=== PATIENT | male | born 1980 | race Caucasian/White ===

== ENCOUNTER 2019-11-16 09:27 | Outpatient (REF) | payer OTHER, SELFPAY ==
[2019-11-16 11:51] LABS: Cholesterol 218 mg/dL; HDL Cholesterol 51 mg/dL; LDL Cholesterol Calculated 158 mg/dl; Triglycerides 47 mg/dL
== END 2019-11-16 09:28 | disposition home or self-care (01) ==
LOC: HO.HMGCLDS 09:27
PROVIDERS: PCP Internal Medicine; Visit Provider Internal Medicine
DX: E78.00 Pure hypercholesterolemia, unspecified (principal)
CPT/HCPCS: 80061

== ENCOUNTER 2020-07-29 10:39 | Outpatient (REF) | payer OTHER, SELFPAY ==
[2020-07-29 14:22] LABS: Cholesterol 176 mg/dL; HDL Cholesterol 54 mg/dL; LDL Cholesterol Calculated 115 mg/dl; Triglycerides 35 mg/dL
[2020-07-30 22:12] LABS: Transglutaminase Ab IgG 1 U/mL
== END 2020-07-29 10:40 | disposition home or self-care (01) ==
LOC: HO.HMGCLDS 10:39
PROVIDERS: PCP Internal Medicine; Visit Provider Internal Medicine
DX: E78.00 Pure hypercholesterolemia, unspecified (principal); R14.0 Abdominal distension (gaseous)
CPT/HCPCS: 36415; 80061; 83516

== ENCOUNTER 2021-07-25 10:56 | Outpatient (REF) | payer OTHER, SELFPAY ==
[2021-07-25 15:23] LABS: MANUAL DIFF FLAG NO
[2021-07-25 15:28] LABS: Basophils Percent Auto 0.2 % (0-2); Eosinophils Percent Auto 0.9 % (0-4); Hematocrit 44.2 % (42.0-52.0); Imm Gran Abs Auto 0.01 X10*3/uL (0.00-0.03); Imm Gran Pct Auto 0.2 % (0.0-0.4); Lymphocytes Absolute Auto 1.3 X10*3/uL (1.2-4.9); Lymphocytes Percent Auto 27.8 % (20-40); Mean Corpuscular HGB Conc 33.9 g/dl (31.0-36.0); Mean Corpuscular Hemoglobin 29.8 pg (27.0-33.0); Mean Corpuscular Volume 87.7 fL (80.0-98.0); Mean Platelet Volume 10.1 fL (9.4-12.4); Monocytes Absolute Auto 0.5 X10*3/uL (0.1-1.2); Monocytes Percent Auto 10.8 % (2-11); Neutrophils Absolute Auto 2.7 x10*3/uL (2.0-8.3); Neutrophils Percent Auto 60.1 % (45-73); Platelet Count 169 X10*3/uL (160-400); Red Blood Count 5.04 X10*6/uL (4.60-5.80); Red Cell Distribution Width 13.3 % (11.0-16.0); White Blood Count 4.5 X10*3/uL (4.8-10.8)
[2021-07-25 15:46] LABS: Alanine Aminotransferase 27 U/L (0-40); Albumin Level 4.4 g/dL (3.5-5.0); Alkaline Phosphatase 28 U/L (39-117); Anion Gap 13 (12-20); Aspartate Amino Transferase 30 U/L (5-37); Blood Urea Nitrogen 12 mg/dL (9-16); Calcium 9.1 mg/dL (8.4-10.2); Carbon Dioxide 26 mmol/L (22-29); Chloride 107 mmol/L (96-108); Cholesterol 183 mg/dL; Estimated Glomerular Filt Rate > 60; Glucose Fasting 76 mg/dL (60-99); HDL Cholesterol 52 mg/dL; LDL Cholesterol Calculated 122 mg/dl; Sodium 142 mmol/L (135-145); Total Protein 6.8 g/dL (6.5-8.0); Triglycerides 45 mg/dL
[2021-07-25 16:04] LABS: Syphilis Screen Nonreactive (Nonreactive)
[2021-07-26 10:21] LABS: CT PCR NOT DETECTED (Not Detect.); NG PCR NOT DETECTED (Not Detect.)
[2021-07-28 04:10] LABS: HIV AB/AG Nonreactive (Nonreactive); HIV Num 1 0.09 S/CO (0.00-0.99)
== END 2021-07-25 10:57 | disposition home or self-care (01) ==
LOC: HO.HMGCLDS 10:56
PROVIDERS: Visit Provider Internal Medicine
DX: Z00.00 Encounter for general adult medical examination without abnormal findings (principal); Z11.3 Encounter for screening for infections with a predominantly sexual mode of transmission; Z11.4 Encounter for screening for human immunodeficiency virus [HIV]
CPT/HCPCS: 80053; 80061; 85025; 86780; 87389; 87491; 87591

== ENCOUNTER 2022-07-24 12:40 | Outpatient (REF) | payer OTHER, SELFPAY ==
[2022-07-24 13:28] LABS: MANUAL DIFF FLAG NO
[2022-07-24 13:32] LABS: Basophils Percent Auto 0.5 % (0-2); Eosinophils Absolute Auto 0.1 X10*3/uL (0.0-0.4); Eosinophils Percent Auto 1.7 % (0-4); Hematocrit 45.3 % (42.0-52.0); Hemoglobin 15.9 g/dl (14.0-18.0); Imm Gran Abs Auto 0.01 X10*3/uL (0.00-0.03); Imm Gran Pct Auto 0.2 % (0.0-0.4); Lymphocytes Absolute Auto 1.7 X10*3/uL (1.2-4.9); Lymphocytes Percent Auto 28.3 % (20-40); Mean Corpuscular HGB Conc 35.1 g/dl (31.0-36.0); Mean Corpuscular Hemoglobin 30.1 pg (27.0-33.0); Mean Corpuscular Volume 85.8 fL (80.0-98.0); Monocytes Absolute Auto 0.7 X10*3/uL (0.1-1.2); Monocytes Percent Auto 11.3 % (2-11); Neutrophils Absolute Auto 3.5 x10*3/uL (2.0-8.3); Platelet Count 190 X10*3/uL (160-400); Red Blood Count 5.28 X10*6/uL (4.60-5.80); Red Cell Distribution Width 13.1 % (11.0-16.0)
[2022-07-24 18:56] LABS: Alanine Aminotransferase 24 U/L (0-40); Albumin Level 4.2 g/dL (3.5-5.0); Alkaline Phosphatase 30 U/L (39-117); Anion Gap 13 (12-20); Aspartate Amino Transferase 27 U/L (5-37); Bilirubin Total 1.2 mg/dL (0.0-1.0); Blood Urea Nitrogen 13 mg/dL (9-16); Calcium 9.9 mg/dL (8.4-10.2); Carbon Dioxide 27 mmol/L (22-29); Chloride 106 mmol/L (96-108); Cholesterol 178 mg/dL; Estimated Glomerular Filt Rate > 60; Glucose Random 75 mg/dL (60-115); HDL Cholesterol 50 mg/dL; LDL Cholesterol Calculated 118 mg/dl; Sodium 142 mmol/L (135-145); Total Protein 6.7 g/dL (6.5-8.0); Triglycerides 52 mg/dL
== END 2022-07-24 12:41 | disposition home or self-care (01) ==
LOC: HO.10HDL 12:40
PROVIDERS: Visit Provider Internal Medicine
DX: E78.00 Pure hypercholesterolemia, unspecified (principal); K58.9 Irritable bowel syndrome, unspecified
CPT/HCPCS: 36415; 80053; 80061; 85025

== ENCOUNTER 2023-08-05 10:05 | Outpatient (REF) | payer OTHER, SELFPAY ==
[2023-08-05 10:43] LABS: Basophils Percent Auto 0.6 % (0-2); Eosinophils Absolute Auto 0.1 X10*3/uL (0.0-0.4); Eosinophils Percent Auto 1.3 % (0-4); Hemoglobin 15.1 g/dl (14.0-18.0); Imm Gran Abs Auto 0.01 X10*3/uL (0.00-0.03); Imm Gran Pct Auto 0.2 % (0.0-0.4); Lymphocytes Absolute Auto 1.2 X10*3/uL (1.2-4.9); Lymphocytes Percent Auto 22.1 % (20-40); MANUAL DIFF FLAG NO; Mean Corpuscular HGB Conc 35.1 g/dl (31.0-36.0); Mean Corpuscular Volume 85.3 fL (80.0-98.0); Monocytes Absolute Auto 0.6 X10*3/uL (0.1-1.2); Neutrophils Absolute Auto 3.3 x10*3/uL (2.0-8.3); Neutrophils Percent Auto 63.8 % (45-73); Platelet Count 181 X10*3/uL (160-400); Red Blood Count 5.04 X10*6/uL (4.60-5.80); Red Cell Distribution Width 13.2 % (11.0-16.0); White Blood Count 5.2 X10*3/uL (4.8-10.8)
[2023-08-05 11:04] LABS: Alanine Aminotransferase 20 U/L (0-40); Albumin Level 4.2 g/dL (3.5-5.0); Alkaline Phosphatase 35 U/L (39-117); Anion Gap 13 (12-20); Aspartate Amino Transferase 24 U/L (5-37); Blood Urea Nitrogen 21 mg/dL (9-16); Calcium 9.3 mg/dL (8.4-10.2); Carbon Dioxide 25 mmol/L (22-29); Chloride 107 mmol/L (96-108); Cholesterol 180 mg/dL (<200); Estimated Glomerular Filt Rate > 60; Glucose Fasting 94 mg/dL (60-99); HDL Cholesterol 50 mg/dL (>40); LDL Cholesterol Calculated 121 mg/dL (<100); Sodium 141 mmol/L (135-145); Total Protein 6.9 g/dL (6.5-8.0); Triglycerides 46 mg/dL (<150)
== END 2023-08-05 10:06 | disposition home or self-care (01) ==
LOC: HO.10HDL 10:05
PROVIDERS: Visit Provider Internal Medicine
DX: E78.00 Pure hypercholesterolemia, unspecified (principal); K58.9 Irritable bowel syndrome, unspecified
CPT/HCPCS: 36415; 80053; 80061; 85025

== ENCOUNTER 2024-01-28 11:58 | Outpatient (REF) | payer OTHER, SELFPAY ==
[2024-01-28 13:08] LABS: MANUAL DIFF FLAG NO
[2024-01-28 13:29] LABS: Basophils Percent Auto 0.7 % (0-2); Eosinophils Absolute Auto 0.1 X10*3/uL (0.0-0.4); Eosinophils Percent Auto 1.1 % (0-4); Hematocrit 42.4 % (42.0-52.0); Hemoglobin 14.9 g/dl (14.0-18.0); Imm Gran Abs Auto 0.01 X10*3/uL (0.00-0.03); Imm Gran Pct Auto 0.2 % (0.0-0.4); Lymphocytes Absolute Auto 1.3 X10*3/uL (1.2-4.9); Mean Corpuscular HGB Conc 35.1 g/dl (31.0-36.0); Mean Corpuscular Hemoglobin 30.7 pg (27.0-33.0); Mean Corpuscular Volume 87.4 fL (80.0-98.0); Mean Platelet Volume 10.4 fL (9.4-12.4); Monocytes Absolute Auto 0.6 X10*3/uL (0.1-1.2); Monocytes Percent Auto 9.8 % (2-11); Neutrophils Absolute Auto 3.6 x10*3/uL (2.0-8.3); Neutrophils Percent Auto 64.2 % (45-73); Platelet Count 189 X10*3/uL (160-400); Red Blood Count 4.85 X10*6/uL (4.60-5.80); Red Cell Distribution Width 13.3 % (11.0-16.0); White Blood Count 5.6 X10*3/uL (4.8-10.8)
[2024-01-28 13:49] LABS: Alanine Aminotransferase 32 U/L (0-40); Alkaline Phosphatase 31 U/L (39-117); Anion Gap 7 (12-20); Aspartate Amino Transferase 35 U/L (5-37); Bilirubin Total 0.6 mg/dL (0.0-1.0); Blood Urea Nitrogen 18 mg/dL (9-16); Calcium 8.8 mg/dL (8.4-10.2); Carbon Dioxide 30 mmol/L (22-29); Chloride 108 mmol/L (96-108); Estimated Glomerular Filt Rate > 60; Glucose Random 125 mg/dL (60-115); Potassium 3.9 mmol/L (3.3-5.1); Sodium 141 mmol/L (135-145); Total Protein 6.6 g/dL (6.5-8.0)
== END 2024-01-28 11:59 | disposition home or self-care (01) ==
LOC: HO.10HDL 11:58
PROVIDERS: Visit Provider Internal Medicine
DX: E78.00 Pure hypercholesterolemia, unspecified (principal); Z86.0100 Personal history of colon polyps, unspecified
CPT/HCPCS: 36415; 80053; 85025

== ENCOUNTER 2024-06-13 13:06 | Outpatient (REF) | payer BC, SELFPAY ==
--- OUTSIDE RECORDS SUMMARY | 2024-06-13 14:23 | XMS_ITS | Patient Health Record ---
Author Organization [facility] Address [address] [place] [address] Care Team Providers Care Scientific Research Manager Name Role Phone Remington Garcia MD Primary Care Provider Jean-Claude Gomez Unavailable [phone] Reason For Referral No Information Medications Medication SIG (Take, Route, Frequency, Duration) Notes Start Date End Date Status Multi Vitamin/Minerals - as directed Ora lly once a day Active Immunizations Vaccine Route Administration Date Status Comme nts Influenza Unknown 10/26/2018 Administered Social History Tobacco Use: Social History Observation Description Date Details (start date - stop date) Never Smoker NA - NA Tobacco Use/Smoking Question Answer Notes Patient is a nonsmoker Alcohol Screen Question Answer Notes Did you have a drink contain ing alcohol in the past year? Yes How often did you have a dri nk containing alcohol in the past year? 2 to 4 times a month (2 points) How many drinks did you have on a typical day when you were drinking in the past year? 1 or 2 drinks (0 point) How often did you have 6 or more drinks on one occasion in the past year? Never (0 point) Points 2 Interpretation Negative Section Notes: Nonsmoker; no sig alcohol Problems Problem Type SNOMED Code ICD Code Onset Dates Problem Status W/U Status Risk Notes Problem 234279075 Encounter for screening for malignant neoplasm of colon (Z12.11) Active confirmed Problem 772069704265096 Preprocedural examination (Z01.818) Active confirmed Problem 052386156 Family history o f colon cancer (Z80.0) Active confirmed Plan Of Treatment Future Test Test Name Order Date COLONOSCOPY 03/15/2019 Next Appt Details Provider Name:Jean-Claude Flood , 07/21/2024 02:20:00 PM, [address], [address], [place], [address], Insurance Providers Payer Name Payer Address Payer Phone Subscriber Number Group Number Insured Name Patient Relationship to Insured Coverage Start Date Coverage End Date [facility] [address] [place] [address] [id number] KHADAR MEADE Self - patient is the insured Medical (General) History Medical History History ICD Code Denies [place],DM,CVA,Lung disease,renal dise ase Colonoscopy in 2008 with [place] was negative except for a hyperplastic polyp Colonoscopy in 2014 was negative in [place] by his report Surgical History Surgery Date(Month/Year)
--- OUTSIDE RECORDS SUMMARY | 2024-06-13 14:23 | XMS_ITS | Encounter Summary ---
Author Organization [facility] Address [address] [place] [address] Care Team Providers Care Tube Winder Name Role Phone Sa10, Oc Unassigned Primary Care Provider [phone] Encounter Details Date Type Department Care Team (Late st Contact Info) Description 05/06/2017 External Outpatient [facility] Dept [address] [place] [address] External, Provider [address] [place] [address] Social History Tobacco Use Types Packs/Day Years Used Date Smoking Tobacco: Never Alcohol Use Standard Drinks/Week Comments Yes 0 (1 standard drink = 0.6 oz pur e alcohol) occasinally Sex and Gender Information Value Date Recorded Sex Assigned at Not on file Legal Sex Male 10:48 AM PDT Gender Identity Not on file Sexual Orientation Not on file documented as of this encounter Plan of Treatment Not on file documented as of this encounter Visit Diagnoses Not on filedocumented in this encounter Care Teams Tube Winder Relationship Specialty Start Date End Date Sa10, Oc Unassigned [address] [place] [address] PCP - General 06/30/18 documented as of this encounter
--- OUTSIDE RECORDS SUMMARY | 2024-06-13 14:23 | XMS_ITS | Clinical Summary ---
Author Organization [facility] Address [address] [place] [address] Care Team Providers Care Ladle Watcher Name Role Phone Sa10, Oc Unassigned Primary Care Provider Source Comments PLEASE NOTE, if this patient is a minor, it may be UNLAWFUL to discuss sensitive information that is contained in these records (such as FAMILY PLANNING, MENTAL HEALTH or SUBSTANCE ABUSE) with the minor patient's parent or other person without the patient's specific authorization.[facility] Allergies No known active allergies Medications No known medications Active Problems Problem Noted Date Diagnosed Date Ingrowing toenail of right foot 07/23/2015 Immunizations Immunization Administration Dates Next Due TDAP 07/23/2015 Social History Tobacco Use Types Packs/Day Years Used Date Smoking Tobacco: Never Alcohol Use Standard Drinks/Week Comments Yes 0 (1 standard drink = 0.6 oz pur e alcohol) occasinally Sex and Gender Information Value Date Recorded Sex Assigned at Not on file Legal Sex Male 10:48 AM PDT Gender Identity Not on file Sexual Orientation Not on file Last Filed Vital Signs Vital Sign Reading Time Taken Comments Blood Pressure 110/60 07/23/2015 9:46 AM PDT Pulse 72 07/23/2015 9:46 AM PDT Temperature 36.4 ??C (97.5 ??F) 07/23/2015 9:46 AM PD T Respiratory Rate - - Oxygen Saturation - - Inhaled Oxygen Concentration - - Weight 86.2 kg (190 lb) 07/23/2015 9:46 AM PDT Height 172.7 cm (5' 8 ) 07/23/2015 9:46 AM PDT Body Mass Index 28.89 07/23/2015 9:46 AM PDT Plan of Treatment Not on file Insurance [employer] Care Teams Ladle Watcher Relationship Specialty Start Date End Date Sa, Oc Unassigned [address] [place] [address] PCP - General 06/30/18
[2024-06-14 04:49] LABS: HBS Num1 210.45 mIU/mL (0-7.99); ~Hepatitis B Surface Antibody REACTIVE (Nonreactive)
[2024-06-14 05:59] LABS: Mumps Virus IgG Antibody >300.00 AU/mL; Rubeola IgG (Measles) >300.00 AU/mL
== END 2024-06-13 13:07 | disposition home or self-care (01) ==
LOC: HO.LAB 13:06
PROVIDERS: PCP Internal Medicine; Visit Provider Physician Assistant
DX: Z01.84 Encounter for antibody response examination (principal)
CPT/HCPCS: 36415; 86706; 86735; 86762; 86765; 86787

== ENCOUNTER → 2024-06-15 09:18 | Outpatient (BNVA) | payer SELFPAY | PROVIDERS: PCP Internal Medicine | DX: Z02.89 Encounter for other administrative examinations (principal) ==

== ENCOUNTER 2024-07-19 11:05 | Outpatient (AMB) | payer BC, SELFPAY ==
--- NOTE | 2024-07-19 11:06 | A.OFFPC_ITS ---
Vital Signs 07/19/24 11:09 Height 5 ft 8 in Weight 92.079 kg BMI 30.9 BP 116/90 H Respiration 14 Pulse 91 Pulse Source Pulse Oximeter Temp 97.8 F Temp Source Temporal Artery Scan Pulse Oximetry (%) 95 Oxygen Delivery Method Room Air Intake Visit Reasons: Routine - see comments Mushroom Farmer Required: No Accompanied by: Self / Same As Patient Allergies No Known Allergies Allergy (Verified 07/19/24 11:12) Tobacco use date assessed: 07/19/24 Dental Screening Dental Screen Date: 07/19/24 Did you have a dental visit in the last 12 months?: Yes Did you have a dental problem in the last 6 months where you did not have access to dental care?: No HPI HPI Comments History of Present Illness Details 44-year-old male without any significant past medical history presents to the office today for annual physical exam. He reports feeling well overall. He does report episodic rashes on the lower extremity that started appearing about 2 years ago. They are primarily located on the anterior shins, feet. He also has an area of erythema and some warmth on the left hip. He has been using qyzf-ewe-cknfkii cream/lotion with some effect. No fevers or chills. 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 He is following every [address] Díaz for colonoscopies due to family history of colon cancer in his father at age 62. He has not had any concerning polyps. No other known cancer in the family. No other significant past family history. He no longer consumes alcohol. He has never smoked cigarettes. No illicit substance or marijuana use. He reports that he has had some weight gain as he has not been exercising as much as he previously did as he has been studying often. He does follow a healthy diet however per his report. BMI is 30. ROS: General: No fevers, malaise, unintentional weight loss HEENT: No blurred vision, diplopia. No sore throat, nasal congestion, rhinorrhea, sinus pain, ear pain Neck - no adenopathy Cardiovascular: No chest pain, palpitations, or leg edema Respiratory: No shortness of breath, wheezing, cough GI: No abdominal pain, nausea, vomiting, diarrhea, constipation, melena, hematochezia : No dysuria, hematuria, increased urinary frequency, decreased urinary output MSK: No myalgia, back pain, arthralgias Neuro: No headaches, weakness, paresthesias Psych: no depression/anxiery. No AH/VH. No SI/HI Skin: No rashes or lesions EXAM: Constitutional - Awake and Alert, No apparent distress Eyes - PERRLA, EOMI. Anicteric Nose- septum midline, nares clear, no sinus tenderness Mouth/throat- mucosa moist, tongue and uvula midline, no erythema/edema or tonsillar adenopathy. Neck-trachea midline, thyroid symmetric without palpable nodules, no adenopathy Cardiovascular - S1S2, RRR, No edema Respiratory - Normal lung expansion, Normal respiratory effort, No respiratory distress, CTA bilaterally Gastrointestinal - NT / ND; +BS; No rebound or guarding - No CVA tenderness Extremities - no calf tenderness bilaterally, no swelling Musculoskeletal - Normal inspection, normal ROM Skin - Warm/Dry. Dry faintly erythematous lesion on anterior de. Multiple punctate excoriated lesions on the ble. blanching erythema and warmth over the lateral aspect of the L hip Neurological - Alert & oriented x3, CN II-XII in tact, 5/5 strength BUE and BLE Psychological - Appropriate affect PFSH Medical History (Updated 07/19/24 @ 12:41 by JH Lorenz) Family history of colon cancer Surgical History History of colonoscopy (~06/07/19) Family History (Updated 07/19/24 @ 12:44 by JH Lorenz) Father Colon cancer Social History Housing: House Patient Tobacco Use Status: Never used Tobacco e-Cigarette/Vaping Use: Never Used service: No Current occupational status: retired Cognitive needs: No Hearing needs: No Vision needs: No Questionnaire PHQ-9 Over the last 2 weeks, how often have you been bothered by any of the following problems? 1. Little interest or pleasure in doing things: not at all 2. Feeling down, depressed, or hopeless: not at all 3. Trouble falling or staying asleep, or sleeping too much: several days 4. Feeling tired or having little energy: several days 5. Poor appetite or overeating: not at all 6. Feeling bad about yourself - or that you are a failure or have let yourself or your family down: not at all 7. Trouble concentrating on things, such as reading the newspaper or watching television: not at all 8. Moving or speaking so slowly that other people could have noticed. Or the opposite - being so fidgety or restless that you have been moving around a lot more than usual: not at all 9. Thoughts that you would be better off or of hurting yourself in some way: not at all Total score: 2 Source: Developed by Drs. Jean-Claude Bernal, Alejandra Odell, Haider Riddle and colleagues, with an educational shira from [employer]. Thrive Questionnaire Date Thrive assessed: 07/19/24 I am a: Patient Within the past 12 months, did the food you bought not last and you didn't have the money to get more?: Never true Within the past 12 months, did you worry whether your food would run out before you got money to buy more?: Never true Do you have trouble paying for medicines?: No Do you have trouble getting transportation to medical appointments?: No Do you have trouble paying your heating and electricity bill?: No Do you have trouble taking care of your child, family member or friend?: No Do you have trouble with day-to-day activities such as bathing, preparing meals, shopping, managing finances, etc.?: No Are you currently unemployed and looking for a job?: No Are you interested in more education?: No THRIVE Score: 0 AUDIT C Alcohol Use Questionnaire (AUDIT-C) 1. How often do you have a drink containing alcohol?: Never 3. How often do you have six or more drinks on one occasion?: Never Total Score: 0 LACIE-7 AMB Questionnaire LACIE-7 Date LACIE - 7 assessed: 07/19/24 Feeling nervous, anxious, or on edge: 0 = Not at all Not being able to stop or control worryin = Not at all Worrying too much about different things: 0 = Not at all Trouble relaxin = Several days Being so restless that it is hard to sit still: 0 = Not at all Becoming easily annoyed or irritable: 0 = Not at all Feeling afraid as if something awful might happen: 0 = Not at all Total LACIE-7 score (0-4 normal; 5-9 mild; 10-14 moderate; 15-21 severe): 1 Source: Developed by Drs. Jean-Claude Bernal, Alejandra Odell, Haider Riddle and colleagues, with an educational shira from [employer]. Physical exam (Primary Care) Vital Signs: Last Vital Signs Temp 97.8 F 07/19/24 11:09 Pulse 91 07/19/24 11:09 Resp 14 07/19/24 11:09 BP 116/90 H 07/19/24 11:09 Pulse Ox 95 07/19/24 11:09 Oxygen Delivery Method Room Air 07/19/24 11:09 BMI result Body Mass Index 30.9 Tobacco/Smoking Status: Tobacco use Status Tobacco use date assessed 07/19/24 07/19/24 11:08 Patient Tobacco Use Status Never used Tobacco 07/19/24 11:08 e-Cigarette/Vaping Use Never Used 07/19/24 11:08 PHQ-9: PHQ-9 Score PHQ-9: Total score 2 07/19/24 12:21 Thrive Assessment: Date of Thrive Assessment Date Thrive assessed 07/19/24 07/19/24 11:08 Coding Level of Care Code Est Pt Prev Care 40-64y(70855) Diagnoses Routine medical exam Z00.00 Dermatitis, unspecified L30.9 Cellulitis L03.90 Folliculitis L73.9 Assessment & Plan Assessment & Plan (1) Routine medical exam: Code(s): Z00.00 - Encounter for general adult medical examination without abnormal findings Category: Medical Plan: Overall in good general state of health. Plan as below. Form completed for nursing program medical clearance. Labs to be completed as ordered (2) Dermatitis, unspecified: Code(s): L30.9 - Dermatitis, unspecified Category: Medical Plan: Suspect an atopic dermatitis. Continue using emollient moisturizers. Given triamcinolone cream to use as needed (3) Cellulitis: Code(s): L03.90 - Cellulitis, unspecified Category: Medical Plan: Of the left hip. Cephalexin 500 mg twice daily (4) Folliculitis: Code(s): L73.9 - Follicular disorder, unspecified Category: Medical Plan: Bactroban ointment twice daily as needed Plan Routine screening labs as ordered below Continue with screening colonoscopies Continue following for annual skin exams and use sun protection Annual eye exams Wear seat belt in car Recommend regular exercise and healthy diet Follow up in 1 year Orders: Orders Basic Metabolic Panel 07/19/24 R73.09 - Other abnormal glucose, Z00.00 - E ncounter for general adult medical examination without abnormal findings Lipid Panel 07/19/24 R73.09 - Other abnormal glucose, Z00.00 - Encounter for general adult medical examination without abnormal findings Hemoglobin A1c 07/19/24 R73.09 - Other abnormal glucose, Z00.00 - Encounter for general adult medical examination without abnormal findings Medications: New cephalexin 500 mg PO BID 14 caps 0RF triamcinolone acetonide 0.1% 1 appl topical BID PRN 30 grams 2RF rash mupirocin 2% 1 appl topical BID PRN 22 grams 2RF folliculitis
[2024-07-19 11:09] VITALS: BP 116/90; PULSE 91; RESP 14; TEMP 36.6; O2SAT 95; BMI 30.9
--- OUTSIDE RECORDS SUMMARY | 2024-07-19 12:42 | XMS_ITS | Patient Health Record ---
Author Organization [facility] Address [address] [place] [address] Care Team Providers Care Software Configuration Specialist Name Role Phone Remington Garcia MD Primary Care Provider Jean-Claude Gomez Unavailable [phone] Reason For Referral No Information Medications Medication [...] Problem Status W/U Status Risk Notes Problem 723124942 Encounter for screening for malignant neoplasm of colon (Z12.11) Active confirmed Problem 721534620047801 Preprocedural examination (Z01.818) Active confirmed Problem 861394845 Family history o f colon cancer (Z80.0) Active confirmed Plan Of Treatment Future Test Test Name Order Date COLONOSCOPY 03/15/2019 Next Appt Details Provider Name:Jean-Claude Flood , 08/10/2024 10:40:00 AM, [address], [address], [place], [address], Insurance Providers Payer Name Payer Address Payer Phone Subscriber Number Group Number Insured Name Patient Relationship to Insured Coverage Start Date Coverage End Date [facility] [address] [place] [address] [id number] KHADAR MEADE Self - patient is the insured Medical (General) History Medical History History ICD Code Denies [place],DM,CVA,Lung disease,renal dise ase Colonoscopy in 2008 with [place] was negative except for a hyperplastic polyp Colonoscopy in 2014 was negative in [place] by his report Surgical History Surgery Date(Month/Year)
== END 2024-07-19 11:45 | disposition home or self-care (01) ==
PROVIDERS: PCP Internal Medicine; Visit Provider Internal Medicine
DX: Z00.00 Encounter for general adult medical examination without abnormal findings (principal); L30.9 Dermatitis, unspecified; L03.90 Cellulitis, unspecified; L73.9 Follicular disorder, unspecified

== ENCOUNTER → 2024-07-19 11:05 | Outpatient (BNVA) | payer BC, SELFPAY | PROVIDERS: PCP Internal Medicine; Visit Provider Internal Medicine | DX: Z13.89 Encounter for screening for other disorder (principal) ==

== ENCOUNTER 2024-07-19 11:50 | Outpatient (REF) | payer BC, SELFPAY ==
[2024-07-19 13:46] LABS: Estimated Average Glucose 88 mg/dL; Hemoglobin A1C 110.2791 umol/L; Hemoglobin A1c % 4.7 % (<6.0)
[2024-07-19 13:54] LABS: Anion Gap 12 (12-20); Blood Urea Nitrogen 24 mg/dL (9-16); Calcium 9.5 mg/dL (8.4-10.2); Carbon Dioxide 26 mmol/L (22-29); Chloride 105 mmol/L (96-108); Cholesterol 172 mg/dL (<200); Estimated Glomerular Filt Rate > 60; Glucose Random 98 mg/dL (60-115); HDL Cholesterol 41 mg/dL (>40); LDL Cholesterol Calculated 97 mg/dL (<100); Potassium 4.1 mmol/L (3.3-5.1); Sodium 139 mmol/L (135-145); Triglycerides 171 mg/dL (<150)
== END 2024-07-19 11:51 | disposition home or self-care (01) ==
LOC: HO.10HDL 11:50
PROVIDERS: Visit Provider Physician Assistant
DX: Z00.00 Encounter for general adult medical examination without abnormal findings (principal); R73.09 Other abnormal glucose
CPT/HCPCS: 36415; 80048; 80061; 83036

== ENCOUNTER 2024-10-24 09:14 | Outpatient (AMB) | payer BC, SELFPAY ==
--- OUTSIDE RECORDS SUMMARY | 2024-07-21 10:20 | XMS_ITS ---
Author Organization [facility] Address [address] [place] [address] Care Team Providers Care Home Mortgage Disclosure Act Specialist Name Role Phone CRISTINA PRAKASH Primary Care Provider Jean-Claude Higgins [phone] REASON FOR VISIT colon screening Encounters Encounter Location Date Provider Diagnosis [facility] [address] [facility] [address] [place] [address] 07/21/2024 Jean-Claude Flood Plan Of Treatment Next Appt Details Provider Name:Jean-Claude Flood , 11/13/2024 11:30:00 AM, [address] [place] [address] , [place], [place], [id number], Progress Notes * EUNICE MEADEOB:1980 (44 yo M)Acc No.[id number]:07/21/2024 Progress Notes Patient: KHADAR CABRALES Provider: Stephan Flood MD :1980 A ge:44 Y S ex:Male Date:07/21/2024 Address:[address] [place] [address] [facility] Pcp:CRISTINA PRAKASH Subjective: * Chief Complaints: * [...] 0 07/21/2024 Generated for Dominick rojas/Eugenia/eTransmitting on: 0 10/24/2024 11:33 AM EDT
[2024-10-24 09:15] VITALS: BP 118/70; PULSE 76; TEMP 36.6; O2SAT 97; BMI 31.6
--- NOTE | 2024-10-24 09:15 | A.OFFPC_ITS ---
Vital Signs 10/24/24 09:15 Height 5 ft 8 in Weight 208 lb BMI 31.6 BP 118/70 Blood Pressure Location Rt brachial Position Sitting Pulse 76 Pulse Source Pulse Oximeter Temp 97.8 F Temp Source Temporal Artery Scan Pulse Oximetry (%) 97 Oxygen Delivery Method Room Air Intake Visit Reasons: Sick appt Toe Stripper Required: No Accompanied by: Self / Same As Patient Allergies No Known Allergies Allergy (Verified 10/24/24 09:15) Medication List - Last Reconciled 10/24/24 by JH Keller cetirizine (All Day Allergy (cetirizine)) 10 mg PO DAILY dextromethorphan-guaifenesin 5-50 mg/5 mL (Robitussin Cough-Chest Congestion DM) 20 mL PO Q4-6H PRN multivitamin 1 tab PO DAILY Tobacco use date assessed: 10/24/24 Dental Screening Dental Screen Date: 10/24/24 Did you have a dental visit in the last 12 months?: Yes Did you have a dental problem in the last 6 months where you did not have access to dental care?: No HPI HPI Comments History of Present Illness Details The patient is a 44-year-old male here in urgent visit presenting with symptoms of an upper respiratory tract infection and concerns regarding erectile dysfunction. The patient reports feeling sick since last Wednesday, with symptoms including nasal congestion and a productive cough that worsens overnight, leading to a sore throat upon waking. He denies any fever and has a history of cat allergies, although he has not been exposed to cats in several years. The patient also expresses concerns about erectile dysfunction, noting that he e xperiences difficulty maintaining an erection during intercourse with his new partner. He mentions a history of similar issues in his early twenties, but reports that his sexual function was satisfactory during his late thirties and forties. The patient has been since March 2022 and is currently in a new relationship. [facility] Medical History (Updated 10/24/24 @ 10:00 by JH Keller) Erectile dysfunction Family history of colon cancer URI (upper respiratory infection) Surgical History History of colonoscopy (~06/07/19) Family History (Updated 10/24/24 @ 09:29 by Codi Porras MA) Father Colon cancer Mother No problems noted. Father No problems noted. Social History Housing: House Patient Tobacco Use Status: Never used Tobacco e-Cigarette/Vaping Use: Never Used service: No Current occupational status: employed Cognitive needs: No Hearing needs: No Vision needs: No Questionnaire PHQ-9 Over the last 2 weeks, how often have you been bothered by any of the following problems? 1. Little interest or pleasure in doing things: not at all 2. Feeling down, depressed, or hopeless: not at all 3. Trouble falling or staying asleep, or sleeping too much: not at all 4. Feeling tired or having little energy: not at all 5. Poor appetite or overeating: not at all 6. Feeling bad about yourself - or that you are a failure or have let yourself or your family down: not at all 7. Trouble concentrating on things, such as reading the newspaper or watching television: not at all 8. Moving or speaking so slowly that other people could have noticed. Or the opposite - being so fidgety or restless that you have been moving around a lot more than usual: not at all 9. Thoughts that you would be better off or of hurting yourself in some way: not at all Total score: 0 Source: Developed by Drs. Jean-Claude Bernal, Alejandra Odell, Haider Riddle and colleagues, with an educational shira from [employer]. Thrive Questionnaire Date Thrive assessed: 10/24/24 I am a: Patient Within the past 12 months, did the food you bought not last and you didn't have the money to get more?: Never true Within the past 12 months, did you worry whether your food would run out before you got money to buy more?: Never true Do you have trouble paying for medicines?: No Do you have trouble getting transportation to medical appointments?: No Do you have trouble paying your heating and electricity bill?: No Do you have trouble taking care of your child, family member or friend?: No Do you have trouble with day-to-day activities such as bathing, preparing meals, shopping, managing finances, etc.?: No Are you currently unemployed and looking for a job?: No Are you interested in more education?: No THRIVE Score: 0 AUDIT C Alcohol Use Questionnaire (AUDIT-C) 1. How often do you have a drink containing alcohol?: Never 3. How often do you have six or more drinks on one occasion?: Never Total Score: 0 LACIE-7 AMB Questionnaire LACIE-7 Date LACIE - 7 assessed: 10/24/24 Feeling nervous, anxious, or on edge: 0 = Not at all Not being able to stop or control worryin = Not at all Worrying too much about different things: 0 = Not at all Trouble relaxin = Not at all Being so restless that it is hard to sit still: 0 = Not at all Becoming easily annoyed or irritable: 0 = Not at all Feeling afraid as if something awful might happen: 0 = Not at all Total LACIE-7 score (0-4 normal; 5-9 mild; 10-14 moderate; 15-21 severe): 0 Source: Developed by Drs. Jean-Claude Bernal, Alejandra Odell, Haider Riddle and colleagues, with an educational shira from [employer]. Review of Systems Const Details: CONSTITUTIONAL Denies fever. HEAD/NECK Negative EAR/NOSE/MOUTH/THROAT Reports nasal congestion Sore throat in am No ear pain RESPIRATORY productive cough no shortness of breath CARDIOVASCULAR Negative GASTROINTESTINAL Negative NEUROLOGICAL Negative PSYCHIATRIC Negative Physical exam (Primary Care) Vital Signs: Last Vital Signs Temp 97.8 F 10/24/24 09:15 Pulse 76 10/24/24 09:15 BP 118/70 10/24/24 09:15 Pulse Ox 97 10/24/24 09:15 Oxygen Delivery Method Room Air 10/24/24 09:15 BMI result Body Mass Index 31.6 GENERAL Well developed, obese, in no apparent distress HEENT Head-Normocephalic Eyes- PERRLA, EOMI, Conjuctiva clear, lids WNL Ears- Canals clear, TMs WNL Nasal- Congested Mouth/Throat-No lesions, no erythema, no exudate Neck- Supple, No lymphadenopathy, thyroid WNL RESPIRATORY Normal I:E, Clear to auscultation CARDIOVASCULAR Regular, rate and rhythm, No murmurs or rubs NEUROLOGICAL Gait normal PSYCHIATRIC Oriented to person, place and time Mood and affect WNL Appearance WNL Speech WNL Thought processes WNL Tobacco/Smoking Status: Tobacco use Status Tobacco use date assessed 10/24/24 10/24/24 09:16 Patient Tobacco Use Status Never used Tobacco 10/24/24 09:16 e-Cigarette/Vaping Use Never Used 10/24/24 09:16 PHQ-9: PHQ-9 Score PHQ-9: Total score 0 10/24/24 09:16 Thrive Assessment: Date of Thrive Assessment Date Thrive assessed 10/24/24 10/24/24 09:16 Coding Level of Care Code Established Pt Est Pt Level 3 (56996) Patient Type Established Diagnoses Viral upper respiratory tract infection J06.9 URI type: unspecified viral URI Erectile dysfunction N52.9 Time Spent (min) 25 Comment Time spent on H&P, Patient education and orders Assessment & Plan Assessment & Plan (1) URI (upper respiratory infection): Code(s): J06.9 - Acute upper respiratory infection, unspecified Category: Medical Qualifiers: URI type: unspecified viral URI Qualified Code(s): J06.9 - Acute upper respiratory infection, unspecified Plan: The patient is likely experiencing a viral upper respiratory tract infection, for which symptomatic treatment is recommended. A prescription for medication to dry up mucus and a cough suppressant will be provided. Patient to follow up as needed if symptoms persist or worsen. (2) Erectile dysfunction: Code(s): N52.9 - Male erectile dysfunction, unspecified Category: Medical Plan: The patient reports erectile dysfunction, which has been intermittently problematic since his early twenties. A referral to a urologist will be made for further evaluation and management. Plan I discussed with the patient that his symptoms are consistent with a viral upper respiratory tract infection, which typically resolves with symptomatic treatm ent. I recommended medications to help dry up mucus and reduce coughing. We also discussed his erectile dysfunction, and I will refer him to a urologist for further evaluation. Orders: Referrals Urology Referral N52.9 - Male erectile dysfunction, unspecified Medications: New cetirizine (All Day Allergy (cetirizine)) 10 mg PO DAILY 14 caps 0RF for congestion dextromethorphan-guaifenesin 5-50 mg/5 mL (Robitussin Cough-Chest Congestion DM) 20 mL PO Q4-6H PRN 118 mL 0RF cough Patient Instructions: - Take prescribed medications to help with mucus and cough. - Follow up with the urologist as scheduled for erectile dysfunction evaluation.
--- OUTSIDE RECORDS SUMMARY | 2024-10-24 11:34 | XMS_ITS | Patient Health Record ---
Author Organization [facility] Address [address] [place] [address] Care Team Providers Care Relay Associate Name Role Phone CRISTINA PRAKASH Primary Care Provider Jean-Claude Higgins Unavailable [phone] Allergies No Known Allergies Reason For Referral [...] Problem Status W/U Status Risk Notes Problem [id number] Encounter for screening for malignant neoplasm of colon (Z12.11) Active confirmed Problem [id number] Preprocedural examination (Z01.818) Active confirmed Problem 974190949 Family history o f colon cancer (Z80.0) Active confirmed Vital Signs Blood pressure diastolic 77 mm Hg 08/10/2024 Height 68 in 08/10/2024 Blood pressure systolic 111 mm Hg 08/10/2024 Weight 201 lbs 08/10/2024 BMI 30.56 kg/m2 08/10/2024 Procedures Procedure Date Ordered Date Performed Result Body Sit e COLONOSCOPY 08/10/2024 N/A Encounters Encounter Location Date Provider Diagnosis [facility] [address] [place] [address] 08/10/2024 Jean-Claude Flood Encounter for screen ing [...] Name:Jean-Claude Flood , 11/13/2024 11:30:00 AM, [address] [facility] , [place], [place], [id number], Insurance Providers Payer Name Payer Address Payer Phone Subscriber Number Group Number Insured Name Patient Relationship to Insured Coverage Start Date Coverage End Date [facility] [address] [place] [address] [id number] LUDWIN MEADE Self - patient is the insured Medical (General) History Medical History History ICD Code Denies [place],DM,CVA,Lung disease,renal dise ase Colonoscopy in 2008 with me was negative except for a hyperplastic polyp Colonoscopy in 2014 was negative in [place] by his report Colonoscopy in 05/2019 was negative for a denomas Surgical History Surgery Date(Month/Year)
--- OUTSIDE RECORDS SUMMARY | 2024-10-24 11:34 | XMS_ITS | Clinical Summary ---
Author Organization [facility] Address [address] [place] [address] Care Team Providers Care Margarine Maker Name Role Phone Sa10, Oc Unassigned Primary Care Provider [phone] Source Comments PLEASE NOTE, if this patient [...] 72 07/23/2015 9:46 AM PDT Temperature 36.4 C (97.5 F) 07/23/2015 9:46 AM PDT Respiratory Rate - - Oxygen Saturation - - Inhaled Oxygen Concentration - - Weight 86.2 kg (190 lb) 07/23/2015 9:46 AM PDT Height 172.7 cm (5' 8 ) 07/23/2015 9:46 AM PDT Body Mass Index 28.89 07/23/2015 9:46 AM PDT Plan of Treatment Not on file Insurance [employer] Care Teams Margarine Maker Relationship Specialty Start Date End Date Sa10, Oc Unassigned [address] [place] [address] PCP - General 06/30/18
--- OUTSIDE RECORDS SUMMARY | 2024-10-24 11:34 | XMS_ITS | Encounter Summary ---
Author Organization [facility] Address [address] [place] [address] Care Team Providers Care Sales Officer Name Role Phone Sa10, Oc Unassigned Primary Care Provider [phone] Encounter Details Date Type Department Care Team (Late st Contact Info) Description 05/06/2017 External Outpatient [facility] Dept [address] [place] [address] External, Provider [address] [place] [address] Social History Tobacco Use Types Packs/Day Years [...] on filedocumented in this encounter Care Teams Sales Officer Relationship Specialty Start Date End Date Sa10, Oc Unassigned [address] [place] [address] PCP - General 06/30/18 documented as of this encounter
== END 2024-10-24 10:12 | disposition home or self-care (01) ==
LOC: HO.HMCHD 09:14
PROVIDERS: PCP Internal Medicine; Visit Provider Physician Assistant Medical
DX: J06.9 Acute upper respiratory infection, unspecified (principal); N52.9 Male erectile dysfunction, unspecified

== ENCOUNTER 2024-11-13 10:01 | Day surgery (SDC) | payer BC, SELFPAY ==
--- OUTSIDE RECORDS SUMMARY | 2024-07-21 10:20 | XMS_ITS ---
Author Organization [facility] Address [address] [facility] [address] [place] [address] Care Team Providers Care Tool Worker Name Role Phone CRISTINA PRAKASH Primary Care Provider Jean-Claude Higgins [phone] REASON FOR VISIT colon screening Encounters Encounter Location Date Provider Diagnosis [facility] [address] [facility] [facility] [address] [place] [address] 07/21/2024 Jean-Claude Flood Plan Of Treatment Next Appt Details Provider Name:Jean-Claude Flood , 11/13/2024 11:30:00 AM, [address] [place] [address] , [place], [id number], Progress Notes * EUNICE MEADEOB:1980 (44 yo M)Acc No.[id number]:07/21/2024 Progress Notes Patient: KHADAR CABRALES Provider: Stephan Flood MD :1980 A ge:44 Y S ex:Male Date:07/21/2024 Address:[address] [place] [address] [facility] Pcp:CRISTINA PRAKASH Subjective: * Chief Complaints: * [...] 07/21/2024 Generated for Dominick rojas/Eugenia/eTransmitting on: 0 10/12/2024 11:24 AM EDT
--- OUTSIDE RECORDS SUMMARY | 2024-10-12 11:25 | XMS_ITS | Patient Health Record ---
Author Organization [facility] Address [address] [place] [address] Care Team Providers Care Size Marker Name Role Phone CRISTINA PRAKASH Primary Care Provider Jean-Claude Higgins Unavailable [phone] Allergies No Known Allergies Reason For Referral No Information Medications Medication [...] Question Answer Notes Patient is a nonsmoker AUDIT-C (Standard) Question Answer Notes Did you have a drink containing alcohol in the p ast year? No Points 0 Interpretation Negative Section Notes: Nonsmoker; no sig alcohol Nonsmoker; no sig alcohol Problems Problem Type SNOMED Code ICD Code Onset Dates Problem Status W/U Status Risk Notes Problem [id number] Encounter for screening for malignant neoplasm of colon (Z12.11) Active confirmed Problem [id number] Preprocedural examination (Z01.818) Active confirmed Problem 296050204 Family history o f colon cancer (Z80.0) Active confirmed Vital Signs Blood pressure diastolic 77 mm Hg 08/10/2024 Height 68 in 08/10/2024 Blood pressure systolic 111 mm Hg 08/10/2024 Weight 201 lbs 08/10/2024 BMI 30.56 kg/m2 08/10/2024 Procedures Procedure Date Ordered Date Performed Result Body Sit e COLONOSCOPY 08/10/2024 N/A Encounters Encounter Location Date Provider Diagnosis [facility] [address] [place] [address] 08/10/2024 Jean-Claude Flood Encounter for screen ing for malignant neoplasm of colon Z12.11 ; Preprocedural examination Z01.818 and Family history of colon cancer Z80.0 Assessments Encounter Date Diagnosis (ICD Code) Assessment Notes Treatment Notes Treatment Clinical Notes Section Notes 08/10/2024 Encounter for screening for malignant neoplasm of colon (ICD-10 - Z12.11) Overall, Ludwin appears quite well. Given his significant family history and his last colonoscopy being over 5 years ago, I did recommend a follow-up colonoscopy for further screening purposes. We did review the rationale for this in regard to colon cancer prevention. Full consent has been obtained for this, including risks of bleeding and perforation. The procedure will be done with monitored anesthesia care. Ludwin was comfortable with this plan. Thank you again for allowing me to participate in Ludwin's care. I shall continue to keep you advised of his progress. 08/10/2024 Preprocedural examination (ICD-10 - Z01.818) Overall, Ludwin appears quite well. Given his significant family history and his last colonoscopy being over 5 years ago, I did recommend a follow-up colonoscopy for further screening purposes. We did review the rationale for this in regard to colon cancer prevention. Full consent has been obtained for this, including risks of bleeding and perforation. The procedure will be done with monitored anesthesia care. Ludwin was comfortable with this plan. Thank you again for allowing me to participate in Ludwin's care. I shall continue to keep you advised of his progress. 08/10/2024 Family history of colon cancer (ICD-10 - Z80.0) Overall, Ludwin appears quite well. Given his significant family history and his last colonoscopy being over 5 years ago, I did recommend a follow-up colonoscopy for further screening purposes. We did review the rationale for this in regard to colon cancer prevention. Full consent has been obtained for this, including risks of bleeding and perforation. The procedure will be done with monitored anesthesia care. Ludwin was comfortable with this plan. Thank you again for allowing me to participate in Ludwin's care. I shall continue to keep you advised of his progress. Plan Of Treatment Pending Test Test Name Order Date COLONOSCOPY 08/10/2024 Future Test Test Name Order Date COLONOSCOPY 03/15/2019 Next Appt Details Provider Name:Jean-Claude Flood , 11/13/2024 11:30:00 AM, [facility] , [place], [place], [id number], Insurance Providers Payer Name Payer Address Payer Phone Subscriber Number Group Number Insured Name Patient Relationship to Insured Coverage Start Date Coverage End Date [facility] [address] [place] [address] [id number] LUDWIN MEADE Self - patient is the insured Medical (General) History Medical History History ICD Code Denies CT,DM,CVA,Lung disease,renal dise ase Colonoscopy in 2008 with me was negative except for a hyperplastic polyp Colonoscopy in 2014 was negative in [place] by his report Colonoscopy in 05/2019 was negative for a denomas Surgical History Surgery Date(Month/Year)
[2024-11-09 15:33] VITALS: BMI 30.6
--- NOTE | 2024-11-10 09:01 | P.CONAN_ITS ---
Documented by User: Malorie Mosley NP 11/10/24 09:02 HPI - Anesthesia Eval Consult details Narrative: 44yo M for Colonoscopy [facility] Active Problems Active Problems: All Active Problems URI (upper respiratory infection) (Acute) Erectile dysfunction (Acute) Folliculitis (Acute) Cellulitis (Acute) Dermatitis, unspecified (Acute) Routine medical exam (Acute) Past Medical History Medical History URI (upper respiratory infection) Erectile dysfunction Family history of colon cancer Family History Family History Father Colon cancer Mother No problems noted. Father No problems noted. Surgical History Surgical History History of colonoscopy (~06/07/19) Social History Social History Housing: House Patient Tobacco Use Status: Never used Tobacco e-Cigarette/Vaping Use: Never Used Use of substances other than those prescribed or required for medical reasons: No Are you DNR?: No Advance Directives: No Advance Directives Information Provided: Yes Poor oral hygiene: No service: No Current occupational status: employed Cognitive needs: No Hearing needs: No Vision needs: No Meds Allergies Allergy/AdvReac Type Severity Reaction Status Date / Time No Known Allergies Allergy Verified 10/24/24 09:15 Home Medications ?Medication ?Instructions ?Recorded ?Confirmed ?Last Taken ?Type multivitamin 1 tab PO DAILY 10/24/2410/09 Unknown History Exam Height,Weight and Vital Signs: Height 5 ft 8 in Weight 91.172 kg Assessment and Plan Assessment Anesthesia Assessment: Chart Reviewed Documented by User: Gurmeet Cruz MD 11/13/24 13:05 [facility] Past Medical History Medical History URI (upper respiratory infection) Erectile dysfunction Family history of colon cancer Functional capacity: independent ambulation Family History Family History Father Colon cancer Mother No problems noted. Father No problems noted. Family history of problems with anesthesia: No Surgical History Surgical History History of colonoscopy (~06/07/19) History of Problems with Anesthesia: No Social History Social History Housing: House Patient Tobacco Use Status: Never used Tobacco e-Cigarette/Vaping Use: Never Used Use of substances other than those prescribed or required for medical reasons: No Are you DNR?: No Advance Directives: No Advance Directives Information Provided: Yes Poor oral hygiene: No service: No Current occupational status: employed Cognitive needs: No Hearing needs: No Vision needs: No Meds Allergies Allergy/AdvReac Type Severity Reaction Status Date / Time No Known Allergies Allergy Verified 10/24/24 09:15 Home Medications ?Medication ?Instructions ?Recorded ?Confirmed ?Last Taken ?Type multivitamin 1 tab PO DAILY 10/24/2410/09 Unknown History Exam Exam Date and Time: 11/13/24 Airway Mallampati Class: II TM Dist: >3cm Neck ROM: Full Heart: rrr Lungs: cta Other: none Assessment and Plan Assessment Anesthesia Assessment: Anesthesia Plan Discussed Final Anesthetic Review Family History of Problems with Anesthesia: No History of Problems with Anesthesia: No NPO: Yes ASA Class: II Final Preanesthetic Review: No Changes in Pt Med Stat, Meds/Allgs Chart Reviewed, Consent Obtained/Reviewed and Anes Risks/Benef Reviewed Patient Risk: Low Procedure Risk: Low Anesthetic Plan Anesthetic Plan: MAC: Disposition: Standard PACU
[2024-11-13 12:24] VITALS: BMI 30.7
[2024-11-13 12:30] VITALS: BMI 30.7
[2024-11-13 12:32] VITALS: BP 122/77; PULSE 61; RESP 16; TEMP 36.3; O2SAT 97
[2024-11-13] MEDS: Lactated Ringers 1,000 ML 100 ML IVCONT (12:42)
[2024-11-13 14:02] VITALS: BP 129/87; PULSE 89; RESP 18; TEMP 36.5; O2SAT 98
--- NOTE | 2024-11-13 14:04 | P.BOP_ITS ---
Brief Operative Note Date of Service: 11/13/24 Pre-op diagnosis: Screening Post-op diagnosis: other (Polyp) Procedure: Colonoscopy to the cecum and TI with bx/removal of polyp Surgeon: Jean-Claude Flood MD Anesthesia: MAC Was an Sports Coordinator used for this Procedure?: No Estimated blood loss (mL): 2.0 Pathology: other (A. Transverse colon polyp) Condition: stable Disposition: PACU
[2024-11-13 14:17] VITALS: BP 115/85; PULSE 80; RESP 16; TEMP 36.6; O2SAT 98
--- NOTE | 2024-11-14 00:58 | OP_ITS ---
DATE OF SERVICE: 11/13/2024 SURGEON: Jean-Claude Flood MD INDICATIONS: The patient presents for evaluation of family history of colon cancer, and colorectal cancer screening. Full consent has been obtained from him for this, including risks of bleeding and perforation. PREOPERATIVE DIAGNOSIS: POSTOPERATIVE DIAGNOSIS: PROCEDURE PERFORMED: ESTIMATED BLOOD LOSS: COMPLICATIONS: ANESTHESIA: Medication used, monitored anesthesia care. ASSISTANTS: SPECIMENS: PREOPERATIVE DIAGNOSES: Colorectal cancer screening and family history of colon cancer. POSTOPERATIVE DIAGNOSES: Colorectal cancer screening and family history of colon cancer, small colon polyp, internal hemorrhoids. PROCEDURES PERFORMED: Colonoscopy to the cecum and terminal ileum with biopsy and removal of polyp. DESCRIPTION OF PROCEDURE: The patient was placed in the left lateral decubitus position. The digital rectal exam revealed no abnormalities. The Olympus video pediatric colonoscope was entered into the rectum and advanced easily to the cecum. Once in the cecum, I did identify normal-appearing cecal pouch with appendiceal orifice and a normal-appearing ileocecal valve. The terminal ileum was cannulated and appeared normal. The scope was withdrawn back in the colon. The entire cecum and ileocecal valve appeared normal. The scope was slowly withdrawn assessing all mucosal surfaces carefully. Preparation was excellent. In the transverse colon was a flat, approximately 4 mm polyp, which was biopsied and completely removed with a cold biopsy forceps. I did not visualize any other polyps, colitis, nor angiodysplasia. In the rectum, scope was retroflexed visualizing internal hemorrhoids, but no other pathology. The rectal mucosa appeared normal. Scope was straightened and withdrawn from the patient. He tolerated the procedure well and was returned to the recovery area in stable condition. IMPRESSION: 1. Small colon polyp. 2. Internal hemorrhoids. PLAN: The results of the biopsy will be checked. Even if this is not a tubular adenoma, I would recommend a followup coloscopy in 5 years for further screening given the family history of colon cancer in his father at age 60. He will otherwise see me as needed. MD BRAD Hernández/VERONICA / [id number]
== END 2024-11-13 14:37 | disposition home or self-care (01) ==
PROVIDERS: PCP Internal Medicine; Visit Provider Internal Medicine
PROC: 0DJD8ZZ Inspection of Lower Intestinal Tract, Via Natural or Artificial Opening Endoscopic (ICD-10-PCS; CPT 45378; principal; 2024-11-13 11:30)
DX: Z12.11 Encounter for screening for malignant neoplasm of colon (principal); D12.3 Benign neoplasm of transverse colon; K64.8 Other hemorrhoids; Z86.0109 Personal history of other colon polyps; Z80.0 Family history of malignant neoplasm of digestive organs
CPT/HCPCS: 45380; 88305; J2003; J2704; J3010

== ENCOUNTER 2024-12-01 10:32 | Outpatient (REF) | payer BC, SELFPAY ==
[2024-12-01 14:11] LABS: Resp Syncy Virus RNA Qual PCR NEGATIVE (Negative); SARS COV2 PCR INHOUSE NEGATIVE (Negative)
== END 2024-12-01 10:33 | disposition home or self-care (01) ==
LOC: HO.LAB 10:32
PROVIDERS: PCP Internal Medicine; Visit Provider Physician Assistant
DX: J06.9 Acute upper respiratory infection, unspecified (principal); Z13.89 Encounter for screening for other disorder; Z79.899 Other long term (current) drug therapy
CPT/HCPCS: 87637; 87880

== ENCOUNTER 2024-12-01 10:32 | Outpatient (AMB) | payer BC, SELFPAY ==
--- OUTSIDE RECORDS SUMMARY | 2024-07-21 10:20 | XMS_ITS ---
Author Organization [facility] Address [address] [place] [address] Care Team Providers Care Emergency Veterinary Technician Name Role Phone CRISTINA PRAKASH Primary Care Provider Jean-Claude Higgins [phone] REASON FOR VISIT colon screening Encounters Encounter Location Date Provider Diagnosis [facility] [address] [place] [address] 07/21/2024 Jean-Claude Flood Plan Of Treatment No Information Progress Notes * EUNICE MEADEOB:1980 (44 yo M)Acc No.[id number]:07/21/2024 Progress Notes Patient: KHADAR CABRALES Provider: Stephan Flood MD :1980 A ge:44 Y S ex:Male Date:07/21/2024 Address:[address] [place] [address] [address]ILY All[address] [facility] Pcp:CRISTINA PRAKASH Subjective: * Chief Complaints: * [...] MD Date: 0 07/21/2024 Generated for Dominick ng/Faazebg/eTransmitting on: 1 12:07 PM EDT
--- OUTSIDE RECORDS SUMMARY | 2024-11-13 07:30 | XMS_ITS ---
Author Organization [facility] Address [address] [facility] [address] [place] [address] Care Team Providers Care Hide Buffer Name Role Phone CRISTINA PRAKASH Primary Care Provider Jean-Claude Higgins [phone] REASON FOR VISIT screening, fam hx colon cancer Encounters Encounter Location Date Provider Diagnosis [facility] Out[facility] [address] [place], [place] [phone] 11/13/2024 Jean-Claude Flood Plan Of Treatment No Information Progress Notes * EUNICE MEADEOB:1980 (44 yo M)Acc No.[id number]:11/13/2024 COLON WITH MAC Patient: KHADAR CABRALES Provider: Stephan Flood MD :1980 A ge:44 Y S ex:Male Date:11/13/2024 Address:[address] [place], [place] [address] Pcp:CRISTINA PRAKASH Subjective: * Chief Complaints: * [...] MD Date: Generated for Dominick rojas/Eugenia/eTransmitting on: 12:07 PM EDT
[2024-12-01 10:41] VITALS: BP 112/68; PULSE 84; TEMP 37; O2SAT 98; BMI 31.5
--- NOTE | 2024-12-01 10:41 | AM.OFFWIN_ITS ---
Intake Vital Signs 12/01/24 10:41 Height 5 ft 8 in Weight 207 lb BMI 31.5 BP 112/68 Blood Pressure Location Lt brachial Position Sitting Pulse 84 Pulse Source Pulse Oximeter Temp 98.6 F Temp Source Oral Pulse Oximetry (%) 98 Oxygen Delivery Method Room Air Intake Visit Reasons: EP - Sore throat Intake Note: Patient presents with c/o sore throat x3 days Patient Tobacco Use Status: Never used Tobacco Allergies No Known Allergies Allergy (Verified 12/01/24 10:43) Do you need a note to return to daycare/school/sports/work: Yes HPI HPI Comments History of Present Illness Details History - The patient is a 44-year-old male pres enting with symptoms of a sore throat and cough. - The sore throat and cough have been pr esent for three days, with the patient experiencing coughing throughout the night. - The patient reports coughing up phlegm intermittently, but denies any shortness of breath or wheezing. - The patient experienced body aches ini tially, but these have since resolved. - The patient denies any fever, though h e felt warm at times, and has not mayte ured his temperature. - The patient has been taking over-the-c ounter medication, Theraflu, which provides some relief. 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 Review of Systems - General: subjective fevers - Respiratory: Reports cough with interm ittent phlegm production, denies shortness of breath or wheezing. - Musculoskeletal: Reports initial body aches, now resolved. - ENT: Reports sore throat, denies sinus pain or ear pain. All systems reviewed and are unremarkable except as noted in HPI Physical Exam General: Cooperative, healthy appearing, comfortable and no acute distress Orientation/consciousness: Patient oriented x3 Limitations: No limitations Head: Normal to inspection Ears: Hearing grossly normal bilaterally, external ears normal, EAC's with cerumen and TM's normal bilaterally Nose: Normal external nose present, Normal nares present and No nasal discharge present Face and sinus: Normal facial exam and sinuses nontender Mouth: Normal oral and palatal mucosa present and moist mucous membranes Throat: Tonsils normal, no exudates, uvula midline, posterior oropharynx erythema Eyes: Appearance normal, both eyes and all related structures Neck: Normal visual inspection, full ROM Respiratory: Clear to auscultation bilaterally. Normal respiratory effort, able to speak in complete sentences, not actively coughing, no respiratory distress, not tachypneic, no tripod positioning and no use of accessory muscles Cardiovascular: Regular rate and rhythm. Normal S1 and S2 Skin: No rashes or lesions noted Neuro: Patient oriented x3 Extremities: Normal to inspection and Yes no clubbing, cyanosis or edema PFSH Medical History URI (upper respiratory infection) Erectile dysfunction Family history of colon cancer Surgical History History of colonoscopy (~11/13/24) Family History Father Colon cancer Mother No problems noted. Father No problems noted. Social History Housing: House Comment: pt enc to hydrate well at home, to nap, then if still painful can take a Patient Tobacco Use Status: Never used Tobacco e-Cigarette/Vaping Use: Never Used service: No Current occupational status: employed Cognitive needs: No Hearing needs: No Vision needs: No Physical Exam Vital Signs: Last Vital Signs Temp 98.6 F 12/01/24 10:41 Pulse 84 12/01/24 10:41 BP 112/68 12/01/24 10:41 Pulse Ox 98 12/01/24 10:41 Oxygen Delivery Method Room Air 12/01/24 10:41 BMI result Body Mass Index 31.5 Results AMB Rapid Strep AMB Rapid Strep Negative Last Edit by Racquel Smallwood CMA on 12/01/24 10: 57 Results Reviewed Results Reviewed: Laboratory Last Values Strep Scn Rapid Clinic Negative 12/01/24 10:48 Assessment & Plan Assessment & Plan (1) URI (upper respiratory infection): Code(s): J06.9 - Acute upper respiratory infection, unspecified Qualifiers: URI type: unspecified viral URI Qualified Code(s): J06.9 - Acute upper respiratory infection, unspecified Plan: Patient was informed and verbally consented to the use of an ambient scribe for clinic note documentation during this visit. Viral Upper Respiratory Infection - VSS, pt well appearing and PE unremarkable. - Rapid strep negative - Plan includes symptomatic treatment with Tessalon Perles for cough suppression at night to aid sleep. - Advised to continue using [id number] medications as needed for symptom relief. - COVID-19, influenza, and RSV tests were conducted to rule out other viral infections. Orders: Orders SARS-CoV2/FLU/RSV Today J06.9 - Acute upper respiratory infection, unspecified AMB Rapid Strep Screen Today Z13.9 - Encounter for screening, unspecified Medications: New benzonatate 200 mg PO BEDTIME PRN 10 caps 0RF cough Coding Level of Care Code Est Pt Level 3 (22630) Diagnoses Viral upper respiratory tract infection J06.9 URI type: unspecified viral URI
--- OUTSIDE RECORDS SUMMARY | 2024-12-01 12:08 | XMS_ITS | Encounter Summary ---
Author Organization [facility] Address [address] [place] [address] Care Team Providers Care Location And Measurement Technician Name Role Phone Sa10, Oc Unassigned Primary Care Provider [phone] Encounter Details Date Type Department Care Team (Late st Contact Info) Description 05/06/2017 External Outpatient [facility] Dept [address] [place] [address] External, Provider [address] [place] [address] Social History Tobacco Use Types Packs/Day Years [...] on filedocumented in this encounter Care Teams Location And Measurement Technician Relationship Specialty Start Date End Date Sa10, Oc Unassigned [address] [place] [address] PCP - General 06/30/18 documented as of this encounter
--- OUTSIDE RECORDS SUMMARY | 2024-12-01 12:08 | XMS_ITS | Clinical Summary ---
Author Organization [facility] Address [address] [place] [address] Care Team Providers Care Sample Worker Name Role Phone Sa10, Oc Unassigned Primary Care Provider [phone] Source Comments PLEASE NOTE, if this patient [...] on file Insurance [employer] Care Teams Sample Worker Relationship Specialty Start Date End Date Sa10, Oc Unassigned [address] [place] [address] PCP - General 06/30/18
--- OUTSIDE RECORDS SUMMARY | 2024-12-01 12:08 | XMS_ITS | Patient Health Record ---
Author Organization [facility] Address [address] [place] [address] Care Team Providers Care Intake Specialist Name Role Phone CRISTINA PRAKASH Primary Care Provider Jean-Claude Higgins Unavailable [phone] Allergies No Known Allergies Results Component Value Reference Range Notes Pathology (Not yet reviewed by provider) Interpretation: Performing Lab:[facility], [address] [place] [phone] Notes/Report: Reason For Referral No Information Medications Medication [...] Problem Status W/U Status Risk Notes Problem Screening for malignant neoplasm of colon (499369547) Encounter for screening for malignant neoplasm of colon (Z12.11) Active confirmed Problem Preprocedural examination (140453934570194) Preprocedural examination (Z01.818) Active confirmed Problem Family History of Cancer of Colon (Situation) (630808705) Family history of colon cancer (Z80.0) Active confirmed Vital Signs Blood pressure diastolic 77 mm Hg 08/10/2024 Height 68 in 08/10/2024 Blood pressure systolic 111 mm Hg 08/10/2024 Weight 201 lbs 08/10/2024 BMI 30.56 kg/m2 08/10/2024 Procedures Procedure Date Ordered Date Performed Result Body Sit e COLONOSCOPY 08/10/2024 N/A Encounters Encounter Location Date Provider Diagnosis [facility] Outpatient [address] [place], [place] [phone] 11/13/2024 Jean-Claude Flood [facility] [address] [place] [address] 08/10/2024 Jean-Claude Flood Encounter for screening for malignant neoplasm of colon Z12.11 ; [...] Test Test Name Order Date COLONOSCOPY 08/10/2024 Pathology 11/13/2024 Future Test Test Name Order Date COLONOSCOPY 03/15/2019 Insurance Providers Payer Name Payer Address Payer Phone Subscriber Number Group Number Insured Name Patient Relationship to Insured Coverage Start Date Coverage End Date [facility] [address] [place] [address] [id number] LUDWIN MEADE Self - patient is the insured Medical (General) History Medical History History ICD Code Denies DC,DM,CVA,Lung disease,renal dise ase Colonoscopy in 2008 with me was negative except for a hyperplastic polyp Colonoscopy in 2014 was negative in [place] by his report Colonoscopy in 05/2019 was negative for a denomas Surgical History Surgery Date(Month/Year)
== END 2024-12-01 11:04 | disposition home or self-care (01) ==
PROVIDERS: PCP Internal Medicine; Visit Provider Physician Assistant
DX: J06.9 Acute upper respiratory infection, unspecified (principal); Z13.9 Encounter for screening, unspecified

== ENCOUNTER 2024-12-04 09:53 | Outpatient (AMB) | payer BC, SELFPAY ==
--- OUTSIDE RECORDS SUMMARY | 2024-07-21 10:20 | XMS_ITS ---
Author Organization [facility] Address [address] [place] [address] Care Team Providers Care Journeyman Tool And Die Maker Name Role Phone CRISTINA PRAKASH Primary Care Provider Jean-Claude Higgins [phone] REASON FOR VISIT colon screening Encounters Encounter Location Date Provider Diagnosis [facility] [address] [place] [address] 07/21/2024 Jean-Claude Flood Plan Of Treatment No Information Progress Notes * EUNICE MEADEOB:1980 (44 yo M)Acc No.[id number]:07/21/2024 Progress Notes Patient: KHADAR CABRALES Provider: Stephan Flood MD :1980 A ge:44 Y S ex:Male Date:07/21/2024 Address:[address] [place] [address] [facility] Pcp:CRISTINA PRAKASH Subjective: * Chief Complaints: * 1 . Colon screening. * Medical History: Objective: * Vitals: Assessment: Plan: * Treatment: * * The named appointment provid er may or may not be the originator of this progress note, and it is not deemed complete until electronically signed by the appointment provider. Sign off status: Pending * Provider: Stephan Flood MD Date: 0 07/21/2024 Generated for Dominick rojas/Faazebg/eTransmitting on: 1 11:25 AM EDT
--- OUTSIDE RECORDS SUMMARY | 2024-11-13 07:30 | XMS_ITS ---
Author Organization [facility] Address [address] [place] [address] Care Team Providers Care Paint Roller Covermaker Name Role Phone CRISTINA PRAKASH Primary Care Provider Jean-Claude Higgins [phone] REASON FOR VISIT screening, fam hx colon cancer Encounters Encounter Location Date Provider Diagnosis [facility] Outpatient [address] [place], [place] [id number] 11/13/2024 Jean-Claude Flood Plan Of Treatment No Information Progress Notes * EUNICE MEADEOB:1980 (44 yo M)Acc No.[id number]:11/13/2024 COLON WITH MAC Patient: KHADAR CBARALES Provider: Stephan Flood MD :1980 A ge:44 Y S ex:Male Date:11/13/2024 Address:[address] [place], [place] [id number] Pcp:CRISTINA PRAKASH Subjective: * Chief Complaints: * 1 . Screening, fam hx colon cancer. * Medical History: Objective: * Vitals: Assessment: Plan: * Treatment: * * The named appointment provid er may or may not be the originator of this progress note, and it is not deemed complete until electronically signed by the appointment provider. Sign off status: Pending * Provider: Stephan Flood MD Date: Generated for Dominick rojas/Eugenia/eTransmitting on: 11:25 AM EDT
--- NOTE | 2024-12-04 10:18 | AM.OFFWIN_ITS ---
Intake Vital Signs 12/04/24 10:19 Height 5 ft 8 in Weight 207 lb BMI 31.5 BP 106/78 Blood Pressure Location Rt brachial Position Sitting Pulse 89 Pulse Source Pulse Oximeter Temp 98.4 F Temp Source Oral Pulse Oximetry (%) 95 Oxygen Delivery Method Room Air Intake Visit Reasons: EP Sore throat, congestion Intake Note: pt presents with chest congestion, sore throat. 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 - He states that he continues to have sy mptoms as he did last week. - The cough is productive with yellow-gr een sputum, but there is no associated shortness of breath. - Throat irritation was noted after yell ing, potentially worsening the condition. - Negative results for strep throat, RSV , and COVID-19 have been confirmed. - Postnasal drip is present, possibly co ntributing to throat irritation. - He denies fever, chills, CP, SOB, abd pain, n/v/d. 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 Physical Exam General: Cooperative, healthy appearing, comfortable and no acute distress Orientation/consciousness: Patient oriented x3 Limitations: No limitations Head: Normal to inspection Ears: Hearing grossly normal bilaterally, external ears normal and TM's normal bilaterally Nose: Normal external nose present, normal nares present, and no nasal discharge present. Face and sinus: Sinuses nontender to palpation. Mouth: Normal oral and palatal mucosa present and moist mucous membranes noted. Throat: Tonsils normal. Uvula is midline. Posterior oropharynx with erythema and no exudates. Eyes: Appearance normal, both eyes and all related structures Neck: Normal visual inspection, full ROM. No lymphadenopathy noted. Respiratory: Clear to auscultation bilaterally. Normal respiratory effort, able to speak in complete sentences. No respiratory distress, not tachypneic, no tripod positioning and no use of accessory muscles. Cardiovascular: Regular rate and rhythm. Normal S1 and S2 Skin: No rashes or lesions noted Patient was informed and verbally consented to the use of an ambient scribe for clinic note documentation during this visit [facility] Medical History URI (upper respiratory infection) Erectile dysfunction Family history of colon cancer Surgical History History of colonoscopy (~11/13/24) Family History Father Colon cancer Mother No problems noted. Father No problems noted. Social History Housing: House Comment: pt enc to hydrate well at home, to nap, then if still painful can take a Patient Tobacco Use Status: Never used Tobacco e-Cigarette/Vaping Use: Never Used service: No Current occupational status: employed Cognitive needs: No Hearing needs: No Vision needs: No Review of Systems Const All systems reviewed & are unremarkable except as noted in HPI and below Physical Exam Vital Signs: Last Vital Signs Temp 98.4 F 12/04/24 10:19 Pulse 89 12/04/24 10:19 BP 106/78 12/04/24 10:19 Pulse Ox 95 12/04/24 10:19 Oxygen Delivery Method Room Air 12/04/24 10:19 BMI result Body Mass Index 31.5 Results AMB Rapid Strep AMB Rapid Strep Negative Last Edit by Viky Khanna MA on 12/04/24 10:47 Results Reviewed Results Reviewed: Laboratory Last Values Strep Scn Rapid Clinic Negative 12/04/24 10:45 Assessment & Plan Assessment & Plan (1) Sore throat: Code(s): J02.9 - Acute pharyngitis, unspecified (2) Cough: Code(s): R05.9 - Cough, unspecified Qualifiers: Cough type: acute Qualified Code(s): R05.1 - Acute cough Plan Most likely URI vs viral illness vs strep vs allergic rhinitis reviewed his previous resp panel and it was negative rapid strep in the office was negative plan - Antibiotics were prescribed due to persistent symptoms despite negative viral tests. - An inhaler was provided for symptom relief. - Continued use of cough suppressant medication was advised. - Prednisone was prescribed to alleviate inflammation. - Monitoring for any changes or worsening of symptoms was recommended. - follow up with PCP Orders: Orders AMB Rapid Strep Screen Today Z13.9 - Encounter for screening, unspecified Medications: New albuterol sulfate 90 mcg/actuation 2 puffs inhalation Q6H PRN 8.5 grams 0RF shortness of breath or wheezing or cough prednisone 40 mg (2 x 20 mg) PO DAILY 10 tabs 0RF 5 days doxycycline hyclate 100 mg PO BID 14 tabs 0RF Coding Level of Care Code Est Pt Level 3 (61330) Diagnoses Sore throat J02.9 Acute cough R05.1 Cough type: acute
[2024-12-04 10:19] VITALS: BP 106/78; PULSE 89; TEMP 36.9; O2SAT 95; BMI 31.5
--- OUTSIDE RECORDS SUMMARY | 2024-12-04 11:26 | XMS_ITS | Patient Health Record ---
Author Organization [facility] Address [address] [place] [address] Care Team Providers Care Fisher Mussel Name Role Phone CRISTINA PRAKASH Primary Care Provider Jean-Claude Higgins Unavailable [phone] Allergies No Known Allergies Results Component Value Reference Range Notes Pathology (Not yet reviewed by provider) Interpretation: Performing Lab:[facility], [address] [place] [phone] Notes/Report: Reason For Referral No Information Medications [...] Problem Screening for malignant neoplasm of colon (663603634) Encounter for screening for malignant neoplasm of colon (Z12.11) Active confirmed Problem Preprocedural examination (146577160100660) Preprocedural examination (Z01.818) Active confirmed Problem Family History of Cancer of Colon (Situation) (297018392) Family history of colon cancer (Z80.0) Active confirmed Vital Signs Blood pressure diastolic 77 mm Hg 08/10/2024 Height 68 in 08/10/2024 Blood pressure systolic 111 mm Hg 08/10/2024 Weight 201 lbs 08/10/2024 BMI 30.56 kg/m2 08/10/2024 Procedures Procedure Date Ordered Date Performed Result Body Sit e COLONOSCOPY 08/10/2024 N/A Encounters Encounter Location Date Provider Diagnosis [facility] Outpatient [address], [place] [phone] 11/13/2024 Jean-Claude Flood [facility] [address] [place] [address] 08/10/2024 Jean-Claude Flood Encounter for screening for [...] Insured Coverage Start Date Coverage End Date [facility] [address] [place] [address] [id number] LUDWIN MEADE Self - patient is the insured Medical (General) History Medical History History ICD Code Denies SD,DM,CVA,Lung disease,renal dise ase Colonoscopy in 2008 with me was negative except for a hyperplastic polyp Colonoscopy in 2014 was negative in [place] by his report Colonoscopy in 05/2019 was negative for a denomas Surgical History Surgery Date(Month/Year)
--- OUTSIDE RECORDS SUMMARY | 2024-12-04 11:26 | XMS_ITS | Encounter Summary ---
Author Organization [facility] Address [address] [place] [address] Care Team Providers Care Visitor Services Representative Name Role Phone Sa10, Oc Unassigned Primary Care Provider [phone] Encounter Details Date Type Department Care Team (Late st Contact Info) Description 05/06/2017 External Outpatient [facility] Dept [address] [place] [address] External, Provider [address] [place] [address] Social History Tobacco Use Types Packs/Day Years [...] on filedocumented in this encounter Care Teams Visitor Services Representative Relationship Specialty Start Date End Date Sa10, Oc Unassigned [address] [place] [address] PCP - General 06/30/18 documented as of this encounter
--- OUTSIDE RECORDS SUMMARY | 2024-12-04 11:26 | XMS_ITS | Clinical Summary ---
Author Organization [facility] Address [address] [place] [address] Care Team Providers Care Generation Technologist Name Role Phone Sa10, Oc Unassigned Primary Care Provider [phone] Source Comments PLEASE NOTE, if this patient [...] on file Insurance [employer] Care Teams Generation Technologist Relationship Specialty Start Date End Date Sa10, Oc Unassigned [address] [place] [address] PCP - General 06/30/18
== END 2024-12-04 11:11 | disposition home or self-care (01) ==
PROVIDERS: PCP Internal Medicine; Visit Provider Physician Assistant Medical
DX: J02.9 Acute pharyngitis, unspecified (principal); R05.1 Acute cough; Z13.9 Encounter for screening, unspecified

== ENCOUNTER → 2024-12-04 09:53 | Outpatient (BNVA) | payer BC, SELFPAY | PROVIDERS: PCP Internal Medicine; Visit Provider Physician Assistant Medical | DX: R05.1 Acute cough (principal); J02.9 Acute pharyngitis, unspecified | CPT/HCPCS: 87880 ==

== ENCOUNTER 2025-01-29 07:50 | Outpatient (AMB) | payer BC, SELFPAY ==
--- OUTSIDE RECORDS SUMMARY | 2024-07-21 09:20 | XMS_ITS ---
Author Organization [facility] Address [address] [place] [address] Care Team Providers Care Engraving Press Operator Name Role Phone CRISTINA PRAKASH Primary Care Provider Jean-Claude Higgins [phone] REASON FOR VISIT colon screening Encounters Encounter Location Date Provider Diagnosis [facility] [address] [place] [address] 07/21/2024 Jean-Claude Flood Plan Of Treatment No Information Progress Notes * EUNICE MEADEOB:1980 (44 yo M)Acc No.[id number]:07/21/2024 Progress Notes Patient: KHADAR CABRALES Provider: Stephan Flood MD :1980 A ge:44 Y S ex:Male Date:07/21/2024 Address:[address] [place], [place] [address]EMILY Allie [facility] Pcp:CRISTINA PRAKASH Subjective: * Chief Complaints: * C olon screening * The named appointment provid er may or may not be the originator of this progress note, and it is not deemed complete until electronically signed by the appointment provider. Sign off status: Pending * Provider: Stephan Flood MD Date: 0 07/21/2024 Generated for Dominick rojas/Eugenia/eTransmitting on: 1 04/01/2024 07:53 AM EST
--- OUTSIDE RECORDS SUMMARY | 2024-11-13 06:30 | XMS_ITS ---
Author Organization [facility] Address [address] [place] [address] Care Team Providers Care Rendering Equipment Tender Name Role Phone CRISTINA PRAKASH Primary Care Provider Jean-Claude Higgins [phone] REASON FOR VISIT screening, fam hx colon cancer Encounters Encounter Location Date Provider Diagnosis [facility] [address] [place], [place] [id number] 11/13/2024 Jean-Claude Flood Plan Of Treatment No Information Progress Notes * EUNICE MEADEOB:1980 (44 yo M)Acc No.[id number]:11/13/2024 COLON WITH MAC Patient: KHADAR CABRALES Provider: Stephan Flood MD :1980 A ge:44 Y S ex:Male Date:11/13/2024 Address:[address] [place], [place] [id number] Pcp:CRISTINA PRAKASH Subjective: * Chief Complaints: * S creening, fam hx colon cancer * The named appointment provid er may or may not be the originator of this progress note, and it is not deemed complete until electronically signed by the appointment provider. Sign off status: Pending * Provider: Stephan Flood MD Date: 1 Generated for Dominick rojas/Eugenia/Marinasmitting on: 04/01/2024 07:53 AM EST
--- NOTE | 2025-01-29 07:52 | MHC.OFFVIS ---
Intake Visit Reasons: Erectile dysfunction (set) Intake Note: Patient is present for ERECTILE DYSFUNCTION Urology Medication:NONE Antibiotic Allergy:NONE Blood Thinner:NONE TODAY'S PVR:OML'S Manager Intensive Care Unit Required: No Allergies No Known Allergies Allergy (Verified 01/29/25 07:54) HPI Comments Details: 1222 sodium 1 year concerns Schulte and how long concern okay again right now I known okay once so ever used like Viagra or anything like okay so generally we do know that you know anxiety can play a role in in everything but as you get older changes as well do smoke cigarette subtle no okay so what we generally do so what we generally do is we will start patients on a low-dose of Cialis which is 5 mg it helps with you know the blood flow to the penis I also want to check your testosterone levels also it can help to take a renal a medication so the Cialisno with a GoodRx coupon it is going to be much more reasonable our nurses will work with you on that some pharmacies are cheaper than others so I will send a message to them and then they will work with you on which pharmacy is the most affordable is sometimes is [facility] might be good but then he had another they changed the [place] is all the time and [facility] can generally be a good place to go as well as big why you know if it is just so they will work with you on that we had all pharmacy that is definitely reasonable okay so if she has if the nurse sends it to a pharmacy you go there and that is in 90 dollars do not get a you had just just call us and see you know that pharmacies charging too much even with a GoodRx coupon can we try a different pharmacy okay right so for the the testosterone levels it is usually 1st thing in the morning it is a fasting blood work and I am going to check your PSA also that is the test that we check to see how healthy your your prostate is so we will check that also 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 PSA stents for prostate specific antigen and that you know check so healthy the prostate is all right so was okay for so we will do a follow-up in about 3 months and and then go from the okay I think that at least for right now does not like you know like he will need it for ever but I thing to at least going to get a maintenance start it is generally effective your urine was normal all that looks good so this you would give to the exit staff so that they would get the lab work set up and give you an appointment for 3 months from now of the so this you just 5 mg is daily and that just helps to keep a good flow to the to the penis because what happens with the erections as you get engorgement of the the penis with blood flow so I think that is something that will be helpful to start and then we will also PFSH Medical History URI (upper respiratory infection) Erectile dysfunction Family history of colon cancer Surgical History History of colonoscopy (~11/13/24) Family History Father Colon cancer Mother No problems noted. Father No problems noted. Social History Housing: House Comment: pt enc to hydrate well at home, to nap, then if still painful can take a Patient Tobacco Use Status: Never used Tobacco e-Cigarette/Vaping Use: Never Used service: No Current occupational status: employed Cognitive needs: No Hearing needs: No Vision needs: No Office Procedures Post Void Residual Post Residual Void Post Void Residual (PVR): 0 [id number] Void Residual by ultrasound Results AMB Urinalysis, Automated UA Leukoctes 0 Melquiades/uL Last Edit by COREEN Nicole on 01/29/25 08:06 UA Nitrite Negative Last Edit by COREEN Nicole on 01/29/25 08:06 UA Urobilinogen 0.2 mg/dL Last Edit by COREEN Nicole on 01/29/25 08:06 UA Protein 15 mg/dL Last Edit by COREEN Nicole on 01/29/25 08:06 UA pH 6.0 Last Edit by COREEN Nicole on 01/29/25 08:06 UA Blood 0 Pete/uL Last Edit by COREEN Nicole on 01/29/25 08:06 UA Specific [place] 1.020 Last Edit by COREEN Nicole on 01/29/25 08:06 UA Ketone Negative Last Edit by COREEN Nicole on 01/29/25 08:06 UA Bilirubin 0 mg/dL Last Edit by COREEN Nicole on 01/29/25 08:06 UA Glucose 0 mg/dL Last Edit by COREEN Nicole on 01/29/25 08:06 Results Reviewed Results Reviewed: Laboratory Last Values Urine pH (Auto) 6.0 01/29/25 08:05 Specific [place] (Auto) 1.020 01/29/25 08:05 Urine Protein (Auto) 15 mg/dL 01/29/25 08:05 Glucose (UA)(Auto) 0 mg/dL 01/29/25 08:05 Urine Ketones (Auto) Negative 01/29/25 08:05 Urine Blood (Auto) 0 Pete/uL 01/29/25 08:05 Urine Nitrite (Auto) Negative 01/29/25 08:05 Urine Bilirubin (Auto) 0 mg/dL 01/29/25 08:05 Urine Urobilinogen (Auto) 0.2 mg/dL 01/29/25 08:05 Leukocyte Esterase (Auto) 0 Melquiades/uL 01/29/25 08:05 Assessment & Plan Assessment & Plan Orders: Orders AMB Urinalysis Automated Today Z13.9 - Encounter for screening, unspecified Coding CPT Codes Post Residual Void - PVR CPT Code: [id number] Void Residual by ultrasound ([id number])
--- OUTSIDE RECORDS SUMMARY | 2025-01-29 07:54 | XMS_ITS | Patient Health Record ---
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 Name Role Phone DWAIN CRISTINA Primary Care Provider Jean-Claude Higgins Unavailable [phone] Allergies No Known Allergies Results Component Value Reference Range Notes Pathology (Not yet reviewed by provider) Interpretation: Performing Lab:[facility], [address] [place] [id number] Notes/Report: Reason For Referral No Information Medications Medication SIG (Take, Route, Frequency, Duration) Notes Start Date End Date Status Multi Vitamin/Minerals - Tablet as directed Orally once a day Active Immunizations Vaccine Route Administration Date Status Comme nts Influenza Unknown 10/26/2018 Administered Social History Tobacco Use: Social History Observation Description Date Details (start date - stop date) Never Smoker NA - NA Social History Drug/Alcohol: Social Info Question Answer Notes AUDIT-C (Standard) Did you have a drink containing alcohol in the past year? 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 Marital status: Occupation: [employer] Notes: Nonsmoker; no sig alcohol Nonsmoker; no sig alcohol Problems Problem Type SNOMED Code ICD Code Onset Dates Problem Status W/U Status Risk Notes Problem Screening for malignant neoplasm of colon (524604609) Encounter for screening for malignant neoplasm of colon (Z12.11) Active confirmed Problem Preprocedural examination (786011912209631) Preprocedural examination (Z01.818) Active confirmed Problem Family History of Cancer of Colon (Situation) (398282544) Family history of colon cancer (Z80.0) Active confirmed Vital Signs Blood pressure diastolic 77 mm Hg 08/10/2024 Height 68 in 08/10/2024 Blood pressure systolic 111 mm Hg 08/10/2024 Weight 201 lbs 08/10/2024 BMI 30.56 kg/m2 08/10/2024 Procedures Procedure Date Ordered Date Performed Result Body Sit e COLONOSCOPY 08/10/2024 N/A Encounters Encounter Location Date Provider Diagnosis [facility] [address] [place], [place] [id number] 11/13/2024 Jean-Claude Flood [facility] [address] [place] [address] 08/10/2024 Jean-Claude Flood Encounter for screening for [...] Insured Coverage Start Date Coverage End Date [facility] [address] [place] [address] [id number] JOSYGLENDYLUDWIN ELIZALDE Self - patient is the insured Medical (General) History Medical History History ICD Code Denies NE,DM,CVA,Lung disease,renal dise ase Colonoscopy in 2008 with me was negative except for a hyperplastic polyp Colonoscopy in 2014 was negative in [place] by his report Colonoscopy in 05/2019 was negative for a denomas Surgical History Surgery Date(Month/Year)
== END 2025-01-29 08:31 | disposition home or self-care (01) ==
LOC: HO.HUSH 07:51
PROVIDERS: PCP Internal Medicine; Visit Provider Urology
DX: Z13.9 Encounter for screening, unspecified (principal)